=== PATIENT | female | born 1955 | race Caucasian/White ===

== ENCOUNTER 2019-12-11 08:03 | Observation (INO) ==
[2019-12-11 08:25] VITALS: BMI 27.4
--- NOTE | 2019-12-11 08:46 | DR.SOBA ---
HPI Time Seen Time Seen by Provider: 12/11/19 08:29 Primary Care Physician Primary Care Physician: jacqueline Kennedy Chief Complaint:: pt stated she was swabed for the covid 19 about a week ago since she was swabbed she has been very short of breath.. pt stated she has not been coughing at this time. Source History Provided: Patient Mode of Arrival Mode of Arrival: Ambulatory Timing Onset of Chief Complaint: 12/04/19 PMH PMH Past Medical History: Yes Past Medical History: Arthritis and Hypertension Past Surgical History: Yes Surgical History: and Joint Replacement Family History History of Family Medical Conditions: Yes Family Medical History: Diabetes Mellitus, Coronary Artery Disease and Hypertension Social History Does patient currently use any type of tobacco product: No Have you used tobacco products in the last 12 months: No Type of Tobacco Use: None Does any household member use tobacco: No Alcohol Use: None Do you use any recreational Drugs:: No Lives With: Family Lives Where: Home Infectious screening In the last 2 months have you had wt loss of >10#?: NO Have you had fever, night sweats or hemotysis?: No Have you traveled outside the country in the last 6 months?: No Isolation: Droplet ROS Review of Systems Constitutional: No Symptoms Reported Eyes: No Symptoms Reported ENTM: No Symptoms Reported Respiratoy: Non-Productive Cough, Dry Cough and Short of Breath; negative Productive Cough, Orthopnea, Stridor, Wheezing and Hemoptysis Cardiovascular: No Symptoms Reported Gastrointestinal/Abdominal: Abdominal Pain (epigastric pain w/o n/v) Genitourinary: No Symptoms Reported Neurological: No Symptoms Reported Musculoskeletal: No Symptoms Reported Integumentary: No Symptoms Reported Hematologic/Lymphatic: No Symptoms Reported Endocrine: No Symptoms Reported Psychiatric: No Symptoms Reported All Other Systems: Reviewed and Negative PE Vital Signs Vitals: Temperature 97.8 F Pulse Rate 97 Respiratory Rate 26 Blood Pressure [Right Arm] 153/66 Blood Pressure 163/91 O2 Sat by Pulse Oximetry 98 General Limitations: No Limitations General Appearance: Alert, In No Apparent Distress and Anxious; negative Lethargic Head Head Exam: Normal Inspection, Atraumatic and Normocephalic Eyes Eye exam: Normal Appearance and PERRL; negative Scleral Icterus, Miosis and Periorbital Tenderness ENT ENT Exam: Normal Exam, Normal Oropharynx, Normal External Ear Exam and Mucous Membranes Moist Neck Neck Exam: Normal Inspection and Full ROM; negative Tenderness, Meningismus and Thyromegaly Chest Chest Inspection: Normal Inspection and Symmetric Chest Wall Rise; negative Rash and Abscess Respiratory Respiratory Exam: Normal Lung Sounds Bilat; negative Accessory Muscle Use, Chest Wall Tenderness, Prolonged Expiratory Phase, Respiratory Distress and Stridor Respiratory Exam: Bilateral: Clear to Auscultation Cardiovascular Cardiovascular Exam: Regular Rate, Normal Rhythm and Normal Heart Sounds Abdominal Exam Abdominal Exam: Normal Inspection, Normal Bowel Sounds and Soft; negative Distention, Tenderness, Rigidity, Trauma and Mass Abdominal Tenderness: LUQ, Epigastrium and Mild Back Back Exam: Normal Inspection and Full ROM; negative Tenderness and Muscle Spasm Neurologic Neurological Exam: Alert, Oriented X3 and Normal Gait; negative Motor Sensory Deficit Psychiatric Psychiatric Exam: Anxious Skin Skin Exam: Warm, Dry and Normal Color COURSE Treatment Treatment: O2, Lasix 40mg IV ROR Labs Reviewed Laboratory Results Reviewed?: Yes Result Diagrams: 12/11/19 08:50 12/11/19 08:50 Laboratory: WBC 7.3 X10^3/uL (3.6-10.0) 12/11/19 08:50 RBC 3.98 X10^6/uL (3.5-5.4) 12/11/19 08:50 Hgb 12.2 g/dL (12.0-16.0) 12/11/19 08:50 Hct 36.9 % (36.0-47.0) 12/11/19 08:50 MCV 92.6 fL (80.0-100.0) 12/11/19 08:50 MCH 30.6 pg (27.0-34.0) 12/11/19 08:50 MCHC 33.0 g/dL (33.0-35.0) 12/11/19 08:50 RDW 13.6 % (11.6-16.5) 12/11/19 08:50 Plt Count 251 X10^3/uL (150.0-450.0) 12/11/19 08:50 MPV 7.5 fL (7.4-11.0) 12/11/19 08:50 Neut % (Auto) 78.3 % (42.0-75.0) H 12/11/19 08:50 Lymph % (Auto) 12.6 % (21.0-51.0) L 12/11/19 08:50 [place] % (Auto) 6.5 % (0.0-13.0) 12/11/19 08:50 Eos % (Auto) 1.6 % (0.9-2.9) 12/11/19 08:50 Baso % (Auto) 1.0 % (0.2-1.0) 12/11/19 08:50 Neut # (Auto) 5.7 x10^3/uL (2.2-4.8) H 12/11/19 08:50 Lymph # (Auto) 0.9 X10^3/uL (1.3-2.9) L 12/11/19 08:50 [place] # (Auto) 0.5 x10^3/uL (0.3-0.8) 12/11/19 08:50 Eos # (Auto) 0.1 x10^3/uL (0.0-0.2) 12/11/19 08:50 Baso # (Auto) 0.1 X10^3/uL (0.0-0.1) 12/11/19 08:50 Absolute Nucleated RBC 0.0 /100WBC 12/11/19 08:50 Sodium 143 mmol/L (136-145) 12/11/19 08:50 Corrected Sodium 143 mmol/L (136-145) 12/11/19 08:50 Potassium 3.5 mmol/L (3.5-5.1) 12/11/19 08:50 Chloride 106 mmol/L (98-107) 12/11/19 08:50 Carbon Dioxide 24.7 mmol/L (21-32) 12/11/19 08:50 BUN 22 mg/dL (7-18) H 12/11/19 08:50 Creatinine 0.84 mg/dL (0.55-1.02) 12/11/19 08:50 Est GFR (MDRD) Af Amer > 60 (>60) 12/11/19 08:50 Est GFR (MDRD) Non-Af > 60 (>60) 12/11/19 08:50 Glucose 116 mg/dL (65-99) H 12/11/19 08:50 Calcium 9.3 mg/dL (8.5-10.1) 12/11/19 08:50 Corrected Calcium TNP 12/11/19 08:50 Total Bilirubin 1.30 mg/dL (0.2-1.0) H 12/11/19 08:50 AST 27 Units/L (15-37) 12/11/19 08:50 ALT 45 Units/L (12-78) 12/11/19 08:50 Alkaline Phosphatase 54 Units/L (46-116) 12/11/19 08:50 Troponin I 0.04 ng/mL (0-1.5) 12/11/19 08:50 B-Natriuretic Peptide 2090 pg/mL (0-79) H* 12/11/19 08:50 Total Protein 7.4 g/dL (6.4-8.2) 12/11/19 08:50 Albumin 4.0 g/dL (3.4-5.0) 12/11/19 08:50 Globulin 3.4 g/dL (2.5-4.5) 12/11/19 08:50 Albumin/Globulin Ratio 1.2 Ratio (1.1-2.1) 12/11/19 08:50 Lipase 277 Units/L (73-393) 12/11/19 08:50 Specimen Type Clean catch urine 12/11/19 09:45 Urine Color Dark yellow (YELLOW) 12/11/19 09:45 Urine Appearance Hazy (CLEAR) 12/11/19 09:45 Urine pH 5.0 (5.0 - 8.0) 12/11/19 09:45 Ur Specific [place] 1.025 (1.000-1.030) 12/11/19 09:45 Urine Protein 3+ (NEGATIVE) 12/11/19 09:45 Urine Glucose (UA) Negative (NEGATIVE) 12/11/19 09:45 Urine Ketones 2+ (NEGATIVE) 12/11/19 09:45 Urine Occult Blood 3+ (NEGATIVE) 12/11/19 09:45 Urine Nitrite Negative (NEGATIVE) 12/11/19 09:45 Urine Bilirubin 1+ (NEGATIVE) 12/11/19 09:45 Urine Urobilinogen 1+ (NORMAL) 12/11/19 09:45 Ur Leukocyte Esterase 1+ (NEGATIVE) 12/11/19 09:45 Urine RBC 0-2 /HPF (0-3) 12/11/19 09:45 Urine WBC 3-5 /HPF (0-5) 12/11/19 09:45 Ur Squamous Epith Cells Few /HPF (NEGATIVE) 12/11/19 09:45 Urine Bacteria Negative /HPF (NEGATIVE) 12/11/19 09:45 Urine Mucus Moderate /HPF (NEGATIVE) 12/11/19 09:45 Ur Culture Indicated? No/not indicated 12/11/19 09:45 Other Results Comments: EKG LBBB 102 bpm no further analysis available XRAY XRAY Interpreted by: Radiologist X-ray Results: compatible with CHF/Pulm Edema CT of aBdo No acute findings Opioid Opioid Risk Tool Total: 0 Total Score Risk Category: Low Risk Copyright: Jcarlos MCDERMOTT predicting aberrant behaviors Diagnosis Discharge Problem: Acute CHF (congestive heart failure) Instructions Forms: Excuse From Work Precautions for COVID19 Patient Portal Social Distancing
[2019-12-11 09:10] LABS: BASOPHILS # (AUTO) 0.1 X10^3/uL (0.0-0.1); EOSINOPHILS # (AUTO) 0.1 x10^3/uL (0.0-0.2); EOSINOPHILS % (AUTO) 1.6 % (0.9-2.9); HEMATOCRIT 36.9 % (36.0-47.0); HEMOGLOBIN 12.2 g/dL (12.0-16.0); LYMPHOCYTES # (AUTO) 0.9 X10^3/uL (1.3-2.9); LYMPHOCYTES % (AUTO) 12.6 % (21.0-51.0); MEAN CORPUSCULAR HEMOGLOBIN 30.6 pg (27.0-34.0); MEAN CORPUSCULAR VOLUME 92.6 fL (80.0-100.0); MEAN PLATELET VOLUME 7.5 fL (7.4-11.0); MONOCYTES # (AUTO) 0.5 x10^3/uL (0.3-0.8); MONOCYTES % (AUTO) 6.5 % (0.0-13.0); NEUTROPHILS # (AUTO) 5.7 x10^3/uL (2.2-4.8); NEUTROPHILS % (AUTO) 78.3 % (42.0-75.0); PLATELET COUNT 251 X10^3/uL (150.0-450.0); RED BLOOD COUNT 3.98 X10^6/uL (3.5-5.4); RED CELL DISTRIBUTION WIDTH 13.6 % (11.6-16.5); WHITE BLOOD COUNT 7.3 X10^3/uL (3.6-10.0)
[2019-12-11 09:20] LABS: ALANINE AMINOTRANSFERASE 45 Units/L (12-78); ALKALINE PHOSPHATASE 54 Units/L (46-116); ASPARTATE AMINO TRANSFERASE 27 Units/L (15-37); BLOOD UREA NITROGEN 22 mg/dL (7-18); CALCIUM 9.3 mg/dL (8.5-10.1); CARBON DIOXIDE 24.7 mmol/L (21-32); CHLORIDE 106 mmol/L (98-107); COR NA(FOR HYPERGLY) 143 mmol/L (136-145); CREATININE 0.84 mg/dL (0.55-1.02); LIPASE 277 Units/L (73-393); SODIUM 143 mmol/L (136-145); TOTAL PROTEIN 7.4 g/dL (6.4-8.2); TROPONIN I 0.04 ng/mL (0-1.5); eGFR NON BLACK RACES > 60 (>60)
[2019-12-11 10:16] LABS: BILIRUBIN,URINE 1+ (NEGATIVE); BLOOD/HEMOGLOBIN,URINE 3+ (NEGATIVE); GLUCOSE, URINE NEGATIVE (NEGATIVE); KETONES,URINE 2+ (NEGATIVE); LEUKOCYTE ESTERASE ,URINE 1+ (NEGATIVE); NITRITES,URINE NEGATIVE (NEGATIVE); PROTEIN,URINE 3+ (NEGATIVE); UROBILINOGEN,URINE 1+ (NORMAL)
[2019-12-11 10:19] LABS: APPEARANCE,URINE HAZY (CLEAR); COLOR,URINE DARK YELLOW (YELLOW)
[2019-12-11 10:25] LABS: BACTERIA,URINE NEGATIVE /HPF (NEGATIVE); RBC,URINE 0-2 /HPF (0-3); SQUAMOUS EPITHELIAL CELL,UR FEW /HPF (NEGATIVE)
[2019-12-11 10:26] LABS: MUCUS,URINE MODERATE /HPF (NEGATIVE)
[2019-12-11] MEDS ORDERED: ATIVAN INJ 2 MG VIAL IVP ONE (11:34)
[2019-12-11] MEDS ORDERED: ATIVAN INJ 2 MG VIAL ONE (11:35)
--- NOTE | 2019-12-11 12:09 | RAD ---
HISTORYSOBSTUDYPA and lateral chestCOMPARISONNoneFINDINGSThere is mild cardiomegaly. There is minimal vascular congestion. There is no effusion. There are diffusely increased interstitial lung markings. There is mild dextroscoliosisIMPRESSION1. Mild cardiomegaly2. Nonspecific increased diffuse interstitial lung markings that may be chronic in a patient of this ageElectronically signed by: KIMO FRENCH (Dec 11, 2019 12:07:09)
--- NOTE | 2019-12-11 12:17 | CT ---
HISTORYEPIGASTRIC, LUQ PAINSTUDYCT ABDOMEN/PELVIS with IV contrastCOMPARISONNoneTECHNIQUEMultiple axial images of the abdomen and pelvis were obtained from the lung bases to the pubic symphysis after the administration of IV contrast. Dose reduction techniques including Automated Exposure Control (AEC) and adjustment of mA and kV were utilized.FINDINGSThe visualized portions of the lung bases suggest CHF with pulmonary edema and small pleural effusions.Possible mild fatty infiltration of the liver. Spleen is normal in size.Gallbladder appears normal. No biliary ductal dilation.No pancreatic abnormality is seen.The adrenal glands appear normal.No hydronephrosis or renal abnormality is seen. Ureters and bladder appear normal. Kidneys are excreting contrast at time of imaging.No bowel abnormalities are seen. Appendix is not seen but no pericecal inflammation is seen.No abnormalities are seen of the reproductive organs.Abdominal aorta is normal in size.No suspicious lymphadenopathy.No free intraperitoneal air or fluid is seen. Tiny umbilical hernia is seen containing fat.No acute bony abnormality is seen.IMPRESSIONCHF with pulmonary edema and small pleural effusions.Tiny umbilical hernia containing fat.Electronically signed by: Pancho Carroll (Dec 11, 2019 12:16:38)
[2019-12-11] MEDS ORDERED: LASIX IVP ONE ×2 (13:48→14:12)
[2019-12-11] MEDS ORDERED: ZOFRAN INJ 4 MG VIAL ONE (14:12)
[2019-12-11] MEDS ORDERED: ZOFRAN INJ 4 MG VIAL IVP ONE (14:12)
[2019-12-11 14:59] LABS: BASOPHILS % (AUTO) 0.6 % (0.2-1.0); EOSINOPHILS # (AUTO) 0.1 x10^3/uL (0.0-0.2); HEMATOCRIT 37.2 % (36.0-47.0); HEMOGLOBIN 12.4 g/dL (12.0-16.0); LYMPHOCYTES # (AUTO) 1.2 X10^3/uL (1.3-2.9); LYMPHOCYTES % (AUTO) 16.4 % (21.0-51.0); MEAN CORPUSCULAR HEMOGLOBIN 30.8 pg (27.0-34.0); MEAN CORPUSCULAR HGB CONC 33.2 g/dL (33.0-35.0); MEAN CORPUSCULAR VOLUME 92.8 fL (80.0-100.0); MEAN PLATELET VOLUME 7.3 fL (7.4-11.0); MONOCYTES # (AUTO) 0.4 x10^3/uL (0.3-0.8); NEUTROPHILS # (AUTO) 5.4 x10^3/uL (2.2-4.8); PLATELET COUNT 266 X10^3/uL (150.0-450.0); RED BLOOD COUNT 4.01 X10^6/uL (3.5-5.4); RED CELL DISTRIBUTION WIDTH 13.6 % (11.6-16.5); WHITE BLOOD COUNT 7.1 X10^3/uL (3.6-10.0)
[2019-12-11 15:23] LABS: ALANINE AMINOTRANSFERASE 47 Units/L (12-78); ALBUMIN 4.3 g/dL (3.4-5.0); ALKALINE PHOSPHATASE 56 Units/L (46-116); ASPARTATE AMINO TRANSFERASE 32 Units/L (15-37); BLOOD UREA NITROGEN 19 mg/dL (7-18); CALCIUM 9.4 mg/dL (8.5-10.1); CARBON DIOXIDE 27.6 mmol/L (21-32); CHLORIDE 103 mmol/L (98-107); COR NA(FOR HYPERGLY) 142 mmol/L (136-145); SODIUM 141 mmol/L (136-145); TOTAL PROTEIN 7.7 g/dL (6.4-8.2); TROPONIN I 0.05 ng/mL (0-1.5); eGFR NON BLACK RACES > 60 (>60)
[2019-12-11] MEDS: LASIX IVP SCH (17:01)
[2019-12-11] MEDS ORDERED: TYLENOL 325 MG TAB PO ONE (21:25)
[2019-12-11] MEDS ORDERED: ZOFRAN TAB 4 MG ONE (21:25)
[2019-12-11] MEDS: TYLENOL 325 MG TAB PO PRN (21:29)
[2019-12-11] MEDS: ZOFRAN TAB 4 MG SL PRN (21:31)
[2019-12-11] MEDS: RESTORIL CAP 15 MG PO PRN (22:27)
[2019-12-11] MEDS: MICRO K EXTEN CAP 10 MEQ PO SCH (22:27)
[2019-12-12] MEDS: MICRO K EXTEN CAP 10 MEQ PO SCH ×3 (05:20→23:19)
[2019-12-12 05:40] LABS: BASOPHILS # (AUTO) 0.1 X10^3/uL (0.0-0.1); BASOPHILS % (AUTO) 1.3 % (0.2-1.0); EOSINOPHILS # (AUTO) 0.2 x10^3/uL (0.0-0.2); EOSINOPHILS % (AUTO) 4.6 % (0.9-2.9); HEMATOCRIT 34.5 % (36.0-47.0); HEMOGLOBIN 11.7 g/dL (12.0-16.0); LYMPHOCYTES # (AUTO) 1.4 X10^3/uL (1.3-2.9); LYMPHOCYTES % (AUTO) 29.5 % (21.0-51.0); MEAN CORPUSCULAR HEMOGLOBIN 31.1 pg (27.0-34.0); MEAN CORPUSCULAR HGB CONC 33.8 g/dL (33.0-35.0); MEAN CORPUSCULAR VOLUME 91.9 fL (80.0-100.0); MEAN PLATELET VOLUME 7.8 fL (7.4-11.0); MONOCYTES # (AUTO) 0.5 x10^3/uL (0.3-0.8); MONOCYTES % (AUTO) 9.6 % (0.0-13.0); NEUTROPHILS # (AUTO) 2.7 x10^3/uL (2.2-4.8); PLATELET COUNT 239 X10^3/uL (150.0-450.0); RED BLOOD COUNT 3.76 X10^6/uL (3.5-5.4); RED CELL DISTRIBUTION WIDTH 13.2 % (11.6-16.5); WHITE BLOOD COUNT 4.9 X10^3/uL (3.6-10.0)
[2019-12-12 05:51] LABS: ALANINE AMINOTRANSFERASE 40 Units/L (12-78); ALBUMIN 3.8 g/dL (3.4-5.0); ALKALINE PHOSPHATASE 50 Units/L (46-116); ASPARTATE AMINO TRANSFERASE 26 Units/L (15-37); BLOOD UREA NITROGEN 19 mg/dL (7-18); CARBON DIOXIDE 32.3 mmol/L (21-32); CHLORIDE 103 mmol/L (98-107); CREATININE 0.93 mg/dL (0.55-1.02); SODIUM 143 mmol/L (136-145); TOTAL PROTEIN 6.9 g/dL (6.4-8.2); eGFR NON BLACK RACES > 60 (>60)
--- NOTE | 2019-12-12 06:00 | RAD ---
Chest AP portableIndication: DyspneaComparison December 11, 2019FINDINGSThere is no pneumothorax. There is cardiomegaly with no severe edema. No new infiltrate identified.IMPRESSIONCardiomegaly, similar to the prior without new acute abnormality seen.Electronically signed by: GREG AUGUSTE (Dec 12, 2019 05:59:03)
[2019-12-12] MEDS: LASIX IVP SCH ×2 (09:24→17:01)
[2019-12-12] MEDS ORDERED: ULTRAM PO PRN (09:30)
[2019-12-12] MEDS ORDERED: COZAAR PO SCH (10:00)
[2019-12-12] MEDS: ECOTRIN TAB 325 MG PO SCH (13:42)
[2019-12-12] MEDS: CELEBREX PO SCH (13:42)
[2019-12-12] MEDS: ALDACTONE TAB 25 MG PO SCH (13:56)
--- NOTE | 2019-12-12 14:58 | DR.H&P ---
H&P - History & Physical for Day of: H&P Date: 12/11/19 - Chief Complaint Chief Complaint: SOB, EPIGASTRIC PAIN - History of Present Illness History of Present Illness: IS A 64 YEAR OLD PATIENT OF OURS WHO PRESENTED TO THE ER WITH COMPLAINTS OF PERSISTENT SHORTNESS OF BREATH. SHE REPORTS BEING SWABBED FOR COVID-19 ONE WEEK AGO, HOWEVER, IT WAS NEGATIVE. SHE REPORTS THAT SYMPTOMS HAVE PROGRESSIVELY WORSENED OVER THE PAST WEEK. SHE ALSO REPORTS EPIGASTRIC PAIN. PAIN IS RATED 5/10. HER PMH INCLUDES HTN AND ARTHRITIS. ON ARRIVAL TO THE ER, HER VITALS WERE 97.8-104-20-97%-160/93. LABS WERE OBTAINED. ABNORMAL LAB VALUES INCLUDE THE FOLLOWING: BUN 22, GLUCOSE 116, TOTAL BILI 1.30, BNP 2090. A URINALYSIS WAS OBTAINED AND REVEALED: WBC 3-5, RBC 0-2, LEUKOCYTES 1+, BACTERIA NEGATIVE, MUCUS MODERATE, OCCULT BLOOD 3+, KETONES 2+, PROTEIN 3+. REPEAT COVID-19 NEGATIVE. AN ABDOMEN/PELVIS CT WAS OBTAINED AND REVEALED: CHF with pulmonary edema and small pleural effusions. Tiny umbilical hernia containing fat. A CHEST XRAY WAS OBTAINED AND REVEALED: 1. Mild cardiomegaly. 2. Nonspecific increased diffuse interstitial lung markings that may be chronic in a patient of this age. AN EKG WAS OBTAINED AND REVEALED: SINUS TACHYCARDIA WITH HR 102. AN ECHOCARDIOGRAM WAS OBTAINED AND REVEALED AN EJECTION FRACTION OF 22%. SHE WAS GIVEN ZOFRAN 4MG IV X 1 DOSE, LASIX 40MG IV X 1 DOSE, AND ATIVAN 1MG IV X 1 DOSE. SHE WAS ADMITTED TO THE HOSPITAL FOR FURTHER EVALUATION AND TREATMENT OF ACUTE, NEW ONSET CONGESTIVE HEART FAILURE. SHE WAS STARTED ON LASIX 40MG IV BID, ALDACTONE 25MG PO DAILY, AND HER HOME MEDICATIONS OF CELEBREX, ECOTRIN, NEURONTIN, COZAAR, RESTORIL, AND ULTRAM WERE RESUMED. WE WILL CONSULT WITH , [facility]. OTHERWISE, WE PLAN TO FOLLOW UP WITH AM LABS AND CONTINUE TO MONITOR. - Past Medical History Past Medical History: Hypertension, Arthritis - Past Surgical History Surgical History: , Joint Replacement - Family History Family Medical History: Coronary Artery Disease, Hypertension - Social History Does patient currently use any type of tobacco product: No Have you used tobacco products in the last 12 months: No Type of Tobacco Use: None Does any household member use tobacco: No Alcohol Use: None Drug Use: None - Medications Home Medications: No Known Drug Allergies Allergy (Verified 12/11/19 08:04) CONTINUE taking the following medications aspirin 325 mg PO DAILY 12/11/19 [History] gabapentin 300 mg PO HS 12/11/19 [History] - Review of Systems Constitutional: Weakness Eyes: No Symptoms Reported ENT: No Symptoms Reported Respiratory: See HPI, Shortness of Breath, SOB with Excertion Cardiovascular: No Symptoms Reported Gastrointestinal: No Symptoms Reported Genitourinary: No Symptoms Reported Musculoskeletal: No Symptoms Reported Skin: No Symptoms Reported Neurological: Weakness - Physical Exam Vital Signs: Temperature 97.9 F Pulse Rate [Left] 80 Pulse Rate [Apical] 102 Pulse Rate 102 Respiratory Rate 18 Blood Pressure [Left Arm] 114/57 Blood Pressure [Right Arm] 153/93 Blood Pressure 153/93 O2 Sat by Pulse Oximetry 96 Oriented: Normal Eyes: Normal Ear: Normal Nose: Normal Throat: Normal Respiratory: Rhonchi Throughout Cardiovascular: Tachycardia : Normal Auscultation: Bowel Sounds: Normal Palpation: Normal Tenderness: Normal Skin: Normal Musculoskeletal: Normal Psychiatric: Normal Mood Description: Calm Affect: Normal Speech Pattern: Clear - Assessment/Plan (1) Acute CHF (congestive heart failure) Qualifiers: Heart failure type: unspecified Qualified Code(s): I50.9 - Heart failure, unspecified Status: Acute Plan: ADMIT, LASIX 40MG IV BID, ALDACTONE 25MG PO DAILY, AND HER HOME MEDICATIONS OF CELEBREX, ECOTRIN, NEURONTIN, COZAAR, RESTORIL, AND ULTRAM WERE RESUMED. WE WILL CONSULT WITH , [facility]ER [facility] (2) Hypertension Qualifiers: Hypertension type: essential hypertension Qualified Code(s): I10 - Essential (primary) hypertension Status: Chronic Plan: CONTINUE HOME MEDS - Review H&P Reviewed: No Patient was examined?: Yes - Allergies Allergies/Adverse Reactions: Allergies Allergy/AdvReac Type Severity Reaction Status Date / Time No Known Drug Allergies Allergy Verified 12/11/19 08:04
[2019-12-12] MEDS: RESTORIL CAP 15 MG PO PRN (20:18)
[2019-12-12] MEDS: ZOFRAN TAB 4 MG SL PRN (20:23)
[2019-12-12] MEDS ORDERED: NEURONTIN CAP 300 MG PO SCH (21:00)
[2019-12-13] MEDS: MICRO K EXTEN CAP 10 MEQ PO SCH (05:20)
--- NOTE | 2019-12-13 06:03 | RAD ---
Chest AP portableIndication: DyspneaComparison December 12, 2019FINDINGSThere is no pneumothorax. There is cardiomegaly with monitoring leads obscuring minimal detail. No overt edema seen. Effusions are probably present.IMPRESSIONCardiomegaly and COPD without convincing new acute chest process.Electronically signed by: GREG AUGUSTE (Dec 13, 2019 06:02:11)
[2019-12-13 06:14] LABS: BASOPHILS # (AUTO) 0.1 X10^3/uL (0.0-0.1); BASOPHILS % (AUTO) 0.9 % (0.2-1.0); EOSINOPHILS # (AUTO) 0.3 x10^3/uL (0.0-0.2); EOSINOPHILS % (AUTO) 5.5 % (0.9-2.9); HEMOGLOBIN 13.4 g/dL (12.0-16.0); LYMPHOCYTES # (AUTO) 1.4 X10^3/uL (1.3-2.9); LYMPHOCYTES % (AUTO) 25.3 % (21.0-51.0); MEAN CORPUSCULAR HEMOGLOBIN 30.6 pg (27.0-34.0); MEAN CORPUSCULAR HGB CONC 33.4 g/dL (33.0-35.0); MEAN CORPUSCULAR VOLUME 91.7 fL (80.0-100.0); MEAN PLATELET VOLUME 7.2 fL (7.4-11.0); MONOCYTES # (AUTO) 0.6 x10^3/uL (0.3-0.8); MONOCYTES % (AUTO) 10.4 % (0.0-13.0); NEUTROPHILS # (AUTO) 3.1 x10^3/uL (2.2-4.8); NEUTROPHILS % (AUTO) 57.9 % (42.0-75.0); PLATELET COUNT 268 X10^3/uL (150.0-450.0); RED BLOOD COUNT 4.37 X10^6/uL (3.5-5.4); RED CELL DISTRIBUTION WIDTH 13.6 % (11.6-16.5); WHITE BLOOD COUNT 5.4 X10^3/uL (3.6-10.0)
[2019-12-13 06:24] LABS: ALANINE AMINOTRANSFERASE 43 Units/L (12-78); ALBUMIN 4.1 g/dL (3.4-5.0); ALKALINE PHOSPHATASE 55 Units/L (46-116); ASPARTATE AMINO TRANSFERASE 31 Units/L (15-37); BLOOD UREA NITROGEN 23 mg/dL (7-18); CALCIUM 9.7 mg/dL (8.5-10.1); CARBON DIOXIDE 33.8 mmol/L (21-32); CHLORIDE 104 mmol/L (98-107); CREATININE 0.96 mg/dL (0.55-1.02); SODIUM 143 mmol/L (136-145); TOTAL PROTEIN 7.8 g/dL (6.4-8.2); eGFR NON BLACK RACES > 60 (>60)
[2019-12-13] MEDS: ECOTRIN TAB 325 MG PO SCH (08:50)
[2019-12-13] MEDS: CELEBREX PO SCH (08:50)
[2019-12-13] MEDS: ALDACTONE TAB 25 MG PO SCH (08:51)
[2019-12-13] MEDS ORDERED: ENTRESTO 24/26 MG TAB PO ONE (08:57)
[2019-12-13] MEDS: TYLENOL 325 MG TAB PO PRN (08:59)
[2019-12-13] MEDS ORDERED: LASIX PO SCH (09:00)
[2019-12-13] MEDS ORDERED: ENTRESTO 24/26 MG TAB PO SCH ×2 (09:00)
[2019-12-13] MEDS ORDERED: COREG TAB 6.25 MG PO SCH (09:00)
[2019-12-13 09:48] LABS: FREE T4 (FREE THYROXINE) 1.23 ng/dL (0.76-1.46); TSH (3RD GENERATION) 1.592 uIU/mL (0.358-3.74)
[2019-12-13 10:25] VITALS: BP 127/74
== END 2019-12-13 10:20 | disposition short-term general hospital (02) ==
LOC: ER 08:03 → MED/SURG 08:03
PROVIDERS: ADMIT Internal Medicine; ATTEND Internal Medicine
DX: Z11.59 Encounter for screening for other viral diseases; R94.31 Abnormal electrocardiogram [ECG] [EKG]; R10.13 Epigastric pain; J44.9 Chronic obstructive pulmonary disease, unspecified; I50.9 Heart failure, unspecified; R06.02 Shortness of breath
CPT/HCPCS: 36415; 71010; 71020; 71045; 71046; 74177; 80053; 81001; 83690; 83880; 84439; 84443; 84480; 84484; 85025; 93005; 93306; 94760; 96365; 96374; 96375; 99284; A4222; G0378; J1940; J2060; J2405; J3490; S0119; S0181